=== PATIENT | female | born 1980 | race Caucasian/White ===

== ENCOUNTER 2016-08-26 20:42 | Emergency (ER) | payer OTHER ==
[~2016-08-26 20:42] MED LIST: ALPRAZOLAM; ALPRAZOLAM PO; AMOXIL875 MG; ATARAX PO; CLEOCIN PO; CLONAZEPAM0.5 MG PO; DOXYCYCLINE HY100 M3 PO; EC-NAPROSYN500 MG PO; FIORICET1 TAB DOB; FIORICET1 TAB PO; FLAGYL; FLEXERIL PO; FLEXERIL10 MG PO; HIBICLENS118 ML TP; KEFLEX500 M1 PO; METRONIDAZOLE; MOTRIN600 M1 PO; NEURONTIN; NEURONTIN PO; NEURONTIN300 MG PO; NEURONTIN600 MG PO; NORCO1 TAB 10/3 PO; PHENERGAN PR; PHENERGAN25 M1; TAGAMET PO; THERAPEUTIC M1 TA4 PO; TRAZODONE HCL100 MG PO; VISTARIL PO; VITAMIN B-1100 M1 PO; VOLTAREN75 MG PO; VYVANSE40 MG PO; ZOFRAN ODT4 MG PO
[2016-08-26 20:44] LABS: URINE SOURCE CLEAN CATCH
[2016-08-26 20:50] LABS: URINE APPEARANCE CLEAR; URINE BILIRUBIN NEG (NEG); URINE BLOOD TRACE-INTACT (NEG); URINE COLOR YELLOW; URINE GLUCOSE NEG (NORM); URINE KETONE NEG (NEG); URINE LEUKOCYTE ESTERASE NEG (NEG); URINE NITRATE NEG (NEG); URINE PH 5.5 (5-8); URINE PROTEIN NEG (NEG); URINE SPECIFIC GRAVITY <=1.005 (1.003-1.035); URINE UROBILINOGEN 0.2 MG/DL (NORM)
[2016-08-26 20:53] LABS: MICRO INDICATED? NO
[2016-08-26 20:59] LABS: AMPHETAMINE NEG (NEG); BARBITURATES NEG (NEG); BENZODIAZEPINES NEG (NEG); COCAINE NEG (NEG); MARIJUANA NEG (NEG); OPIATES NEG (NEG); TRICYCLIC ANTIDEPRESSANTS POS (NEG); U METHADONE NEG (NEG)
[2016-08-26 21:19] LABS: BASOPHIL% 0.3 % (0-2.5); EOSINOPHIL# 0.1 X10e3 (0-0.7); EOSINOPHIL% 2.4 % (0.0-7.0); HEMOGLOBIN 15.4 gm/dL (12.0-16.0); LYMPHOCYTE# 1.7 X10e3 (1.0-3.5); LYMPHOCYTE% 31.4 % (17.0-45.0); MEAN CORPUSCULAR HEMOGLOBIN 32.5 PG (28-34); MEAN CORPUSCULAR HGB CONC 34.2 g/dL (30-36); MEAN PLATELET VOLUME 8.4 FL (6.5-11.5); MONOCYTE# 0.4 X10e3 (0-1.0); MONOCYTE% 7.9 % (3.0-12.0); NEUTROPHIL# 3.1 X10e3 (1.5-7.1); PLATELET COUNT 194 X10e3 (140-420); RED BLOOD COUNT 4.74 X10e (3.90-5.30); RED CELL DISTRIBUTION WIDTH 12.5 % (11.0-15.5); WHITE BLOOD COUNT 5.3 X10e3 (4.0-10.5)
[2016-08-26 21:21] LABS: DIFF IND NO
[2016-08-26 21:35] LABS: ALBUMIN SERUM 4.7 g/dL (3.5-5.0); ALKALINE PHOSPHATASE 60 U/L (32-92); ALT (SGPT) 15 U/L (10-40); AST (SGOT) 24 U/L (10-42); BILIRUBIN,TOTAL 0.4 mg/dL (0.2-2.0); BLOOD UREA NITROGEN 9 mg/dL (9-23); BUN/CREATININE RATIO 12.85; CALCIUM SERUM 9.1 mg/dL (8.4-10.2); CARBON DIOXIDE 24 mmol/L (22-31); CHLORIDE 105 mmol/L (100-111); CREATININE SERUM 0.7 mg/dL (0.6-1.4); GLOM FILT RATE Estimated ABOVE60 mL/min (>60); GLUCOSE FASTING 94 mg/dL (70-110); POTASSIUM 3.3 mmol/L (3.5-5.1); PROTEIN TOTAL SERUM 7.9 g/dL (6.0-8.3); SODIUM 139 mmol/L (135-145)
[2016-08-26 21:36] LABS: ALCOHOL BLOOD 275 mg/dL (0)
== END 2016-08-26 22:13 | disposition home or self-care (01) ==
LOC: SED 20:42
PROVIDERS: Emergency Medicine
DX: F10.129 Alcohol abuse with intoxication, unspecified (principal); F32.9 Major depressive disorder, single episode, unspecified
CPT/HCPCS: 36415; 80053; 80307; 81003; 85025; 96374; 99284; G0480; J2405

== ENCOUNTER 2016-11-07 19:52 | Emergency (ER) | payer OTHER ==
--- NOTE | ~2016-11-07 | CT4 ---
[facility] A Service [facility] RADIOLOGY TEXT RESULTS PATIENT: LOUIS ELLER LOCATION: SED : 82 UNIT #: [id number] AGE: [address]: Rogelio Akins MD SEX: F ORDER DR: [id number] [place] [id number] E MR#: [id number] Acc #: [id number] NAME: LOUIS ELLER : 1980 SEX: F STUDY DATE/TIME: 11/07/2016 22:29 UNIT: SED ROOM: STUDY DESCRIPTION: CT Abd and Pelv Wo Cont Attending Physician: Rogelio Akins M.D. Ordering Physician: Rogelio Akins M.D. Primary Care Physician: Casey Durand Aprn MEDICAL IMAGING REPORT This report is preliminary unless electronic signature is present. EXAM CT abdomen and pelvis without contrast. INDICATIONS Lower back and right-sided abdominal pain today. PROCEDURE Unenhanced CT of the abdomen and pelvis. This CT exam was performed with one or more of the following radiation dose reduction techniques: Automatic exposure control, adjustment of mA and/or kV according to patient size, and iterative reconstruction. COMPARISON 10/27/15. FINDINGS Abdomen without contrast: Included lung bases clear. Liver, spleen, kidneys, adrenal glands, pancreas and gallbladder unremarkable. There is moderately large colonic stool burden. Appendix is normal. Pelvis without contrast: No radiodense bladder calculus. No pelvic mass. No aggressive appearing bone lesion. IMPRESSION 1. No acute findings in the abdomen or pelvis. 2. Moderately large colonic stool burden. Appendix is normal Dictated by... Sekou Henley M.D. [facility] A Service of [facility] RADIOLOGY TEXT RESULTS PATIENT: LOUIS ELLER LOCATION: SED : 82 UNIT #: [id number] AGE: [address]: Rogelio Akins MD SEX: F ORDER DR: THIS IS AN ELECTRONICALLY VERIFIED REPORT Sekou Henley M.D. at 11/11/2016 7:24 AM RACHELLE/klaudia TD: 11/08/2016 08:23 JOB #: [id number] MEDICAL IMAGING REPORT Page 1 of 1
[2016-11-07 20:33] LABS: URINE SOURCE CLEAN CATCH
[2016-11-07 20:36] LABS: URINE APPEARANCE CLEAR; URINE BILIRUBIN NEG (NEG); URINE BLOOD NEG (NEG); URINE COLOR YELLOW; URINE GLUCOSE NEG (NORM); URINE KETONE NEG (NEG); URINE LEUKOCYTE ESTERASE NEG (NEG); URINE NITRATE NEG (NEG); URINE PROTEIN NEG (NEG); URINE UROBILINOGEN 0.2 MG/DL (NORM)
[2016-11-07 20:37] LABS: MICRO INDICATED? NO
[2016-11-07 21:50] LABS: BASOPHIL% 0.5 % (0-2.5); EOSINOPHIL# 0.3 X10e3 (0-0.7); EOSINOPHIL% 5.8 % (0.0-7.0); HEMATOCRIT 44.2 % (35.0-45.0); HEMOGLOBIN 15.2 gm/dL (12.0-16.0); LYMPHOCYTE# 1.7 X10e3 (1.0-3.5); LYMPHOCYTE% 30.6 % (17.0-45.0); MEAN CELL VOLUME 97.7 FL (83-96); MEAN CORPUSCULAR HEMOGLOBIN 33.5 PG (28-34); MEAN CORPUSCULAR HGB CONC 34.3 g/dL (30-36); MEAN PLATELET VOLUME 8.9 FL (6.5-11.5); MONOCYTE# 0.5 X10e3 (0-1.0); MONOCYTE% 8.7 % (3.0-12.0); NEUTROPHIL% 54.4 % (40-75); PLATELET COUNT 209 X10e3 (140-420); RED BLOOD COUNT 4.52 X10e (3.90-5.30); RED CELL DISTRIBUTION WIDTH 12.7 % (11.0-15.5); WHITE BLOOD COUNT 5.6 X10e3 (4.0-10.5)
[2016-11-07 21:51] LABS: DIFF IND NO
[2016-11-07 22:10] LABS: ALBUMIN SERUM 4.8 g/dL (3.5-5.0); ALKALINE PHOSPHATASE 80 U/L (32-92); ALT (SGPT) 14 U/L (10-40); AST (SGOT) 21 U/L (10-42); BILIRUBIN, DIRECT <0.1 mg/dL (0.0-0.2); BILIRUBIN,INDIRECT 0.2 mg/dL (0.0-0.9); BILIRUBIN,TOTAL 0.3 mg/dL (0.2-2.0); BLOOD UREA NITROGEN 14 mg/dL (9-23); CALCIUM SERUM 9.4 mg/dL (8.4-10.2); CARBON DIOXIDE 23 mmol/L (22-31); CHLORIDE 104 mmol/L (100-111); CREATININE SERUM 0.8 mg/dL (0.6-1.4); GLOM FILT RATE Estimated 96.3 mL/min (>60); GLUCOSE FASTING 63 mg/dL (70-110); POTASSIUM 3.7 mmol/L (3.5-5.1); PROTEIN TOTAL SERUM 8.3 g/dL (6.0-8.3); SODIUM 136 mmol/L (135-145)
== END 2016-11-07 23:41 | disposition home or self-care (01) ==
LOC: SED 19:52
PROVIDERS: Emergency Medicine
DX: R10.9 Unspecified abdominal pain (principal); F90.9 Attention-deficit hyperactivity disorder, unspecified type; Z79.899 Other long term (current) drug therapy; Z88.8 Allergy status to other drugs, medicaments and biological substances
CPT/HCPCS: 36415; 74176; 80048; 80076; 81003; 84703; 85025; 99284

== ENCOUNTER 2016-12-27 18:26 | Emergency (ER) | payer OTHER ==
[2016-12-27] MEDS ORDERED: STRATTERA80 MG PO (18:31)
[2016-12-27 19:20] LABS: URINE SOURCE CLEAN CATCH
[2016-12-27 19:22] LABS: URINE APPEARANCE CLEAR; URINE BILIRUBIN NEG (NEG); URINE BLOOD NEG (NEG); URINE COLOR YELLOW; URINE GLUCOSE NEG (NORM); URINE KETONE NEG (NEG); URINE LEUKOCYTE ESTERASE NEG (NEG); URINE NITRATE NEG (NEG); URINE PROTEIN NEG (NEG); URINE UROBILINOGEN 0.2 MG/DL (NORM)
[2016-12-27 19:24] LABS: MICRO INDICATED? NO
[2017-01-01 09:49] LABS: CHLAMYDIA TRACH Not Detected (Not Detected); N GONOR Not Detected (Not Detected)
== END 2016-12-27 21:08 | disposition home or self-care (01) ==
LOC: SED 18:26
PROVIDERS: Nurse Practitioner
DX: R10.32 Left lower quadrant pain (principal); R10.2 Pelvic and perineal pain; N93.9 Abnormal uterine and vaginal bleeding, unspecified; N89.8 Other specified noninflammatory disorders of vagina; M54.5 Low back pain; N64.4 Mastodynia; R11.0 Nausea; F41.9 Anxiety disorder, unspecified; F32.9 Major depressive disorder, single episode, unspecified; K58.9 Irritable bowel syndrome, unspecified; Z87.891 Personal history of nicotine dependence; Z98.51 Tubal ligation status; Z98.890 Other specified postprocedural states; Z79.899 Other long term (current) drug therapy; Z88.1 Allergy status to other antibiotic agents
CPT/HCPCS: 81003; 84703; 87210; 87491; 87591; 87808; 87905; 99284

== ENCOUNTER 2017-01-09 22:00 | Inpatient (IN) | payer OTHER ==
[~2017-01-09] VITALS: Ht 157.5 cm; Wt 59.0 kg
--- NOTE | ~2017-01-09 | DS ---
Unit #: [id number] #: [id number] Patient: NATI ELLER [id number] [place] [address] [id number] MR#: [id number] NAME: NATI ELLER ROOM: P202 Age: 36 Sex: F Admission Date: 01/10/2017 : 1980 Discharge Date: 01/11/2017 Attending Physician: Jake Horton M.D. Primary Care Physician: Casey Durand Aprn DISCHARGE SUMMARY REASON FOR ADMISSION Nati is a 36-year-old woman who came in reporting a relapse on alcohol and felt that she would not be able to tolerate alcohol detox outside the hospital. She had no suicidal ideation, intent, or plan and was admitted for stabilization. DIAGNOSTIC STUDIES LABORATORY RESULTS: Beta-hCG was negative. Other studies were within normal limits. HOSPITAL COURSE The patient was admitted and placed on the alcohol detox protocol. She also restarted on Neurontin as an outpatient medication from her primary care physician. She had minimal detox symptomatology. On the following day, she said she felt "fine" and asked to be discharged from the hospital. DISCHARGE DIAGNOSES AXIS I: Alcohol dependence withdrawal, uncomplicated. AXIS II: No diagnosis. AXIS III: Chronic pain. AXIS IV: AXIS V: DISCHARGE INSTRUCTIONS Follow up with [facility] and primary care physician. DISCHARGE MEDICATIONS Trazodone 100 mg at bedtime as needed for insomnia. Primary care medicines were Neurontin 800 mg t.i.d. for pain and Motrin 600 mg every 6 hours as needed for breakthrough pain. CONDITION AT DISCHARGE Improved. PROGNOSIS Fair to good. DIET AND ACTIVITY Per primary care doctor. Dictated by... Unit #: [id number] #: [id number] Patient: NATI ELLER Jake Horton M.D. [facility]/modl TD: 01/11/2017 16:38 JOB #: [id number] DISCHARGE SUMMARY Page 1 of 1 X Jake Horton MD X DISCHARGE SUMMARY
--- NOTE | ~2017-01-09 | HP ---
Unit #: [id number] #: [id number] Patient: LOUIS ELLER [id number] [place] [address] [id number] MR#: [id number] NAME: LOUIS ELLER ROOM: P202 Age: 36 Sex: F Admission Date: 01/10/2017 : 1980 Attending Physician: Jake Horton M.D. Admitting Physician: Jake Horton M.D. Primary Care Physician: Casey Durand Aprn HISTORY AND PHYSICAL HISTORY OF PRESENT ILLNESS Louis is a 36 year old admitted to [address] [place] [address] because of her continued abuse of alcohol. PAST MEDICAL HISTORY Long history of alcohol abuse. PAST SURGICAL HISTORY 1. T and A. 2. Tubal ligation. ALLERGIES Penicillin (vomiting), Benadryl, Topamax. SOCIAL HISTORY She does not smoke. Drinks at least a pint of vodka on a daily basis. Admits to using marijuana daily and has a history of other illicit substance abuse to include cocaine, LSD and amphetamines. FAMILY HISTORY Medically noncontributory. REVIEW OF SYSTEMS CONSTITUTIONAL: No fever or chills. HEENT: Denies any sore throat, ear pain or runny nose. CARDIOVASCULAR: Denies chest pain, irregular heart rhythm or palpitations. CHEST: Denies shortness of breath or cough. No hemoptysis. GASTROINTESTINAL: Denies nausea, vomiting, diarrhea or chronic constipation. ENDOCRINE: Denies history of increased thirst or urination. No recent significant weight loss or gain. GENITOURINARY: Denies dysuria, frequency, or hematuria. SKIN: Denies any rashes. HEMATOLOGIC: Denies history of increased bleeding or bruising. MUSCULOSKELETAL: Denies any hot, swollen joints. No generalized muscle pain. NEUROLOGIC: Denies problems with vision or speech. No frequent, severe headaches. No numbness, tingling or weakness in any extremities. Denies loss of bladder or bowel control. CURRENT MEDICATIONS Detox protocol. Unit #: [id number] #: [id number] Patient: LOUIS ELLER PHYSICAL EXAMINATION GENERAL: Alert, well-nourished, in no apparent distress. VITAL SIGNS: Blood pressure 110/52, heart rate 64, respirations 16, temperature 98.6. WEIGHT: 130. HEIGHT: 5 feet 2 inches. SKIN: Warm and dry without rash or lesion. HEENT: Normocephalic. TMs not viewed. Oral and nasal passages clear. Conjunctivae clear. PERRLA. EOMs intact. NECK: Supple without lymphadenopathy or thyromegaly. HEART: Regular rate and rhythm without murmur. LUNGS: Clear. ABDOMEN: Soft, nontender. : Not done. EXTREMITIES: No evidence of cyanosis, clubbing or edema. Moves all without focal deficit. NEUROLOGICAL: Grossly within normal limits. Cranial Nerves: II: Visual tolbert are intact. III, IV AND : Extraocular movements are intact. Pupils are equal, round and reactive to light. V: Facial sensation is grossly normal. VII: Facial movements and expression are normal. VIII: Auditory acuity grossly intact. IX, X: Uvula is midline. Phonation is normal. XI: Patient shrugs shoulders and turns head normally. XII: Tongue protrudes in the midline. Sensory and Motor Function: Sensory and motor sensation is grossly normal. Motor: moves all extremities well. Coordination: Gait is normal. Deep Tendon Reflexes: Intact. IMPRESSION Psychiatric admission. RECOMMENDATIONS PSYCHIATRIC: Per psychiatrist. MEDICAL: See no contraindication to participate in facility's activities. MEDICAL PROGNOSIS Good. MEDICAL CONDITION Stable. Dictated by... Jeny Hu PElenaAElena-Donald. for David Barrios/doris TD: 01/10/2017 21:05 JOB #: [id number] Unit #: [id number] #: [id number] Patient: LOUIS ELLER HISTORY AND PHYSICAL Page 1 of 1 X Jeny Hu HISTORY AND PHYSICAL
--- NOTE | ~2017-01-09 | PA ---
Unit #: [id number] #: [id number] Patient: LOUIS ELLER [id number] [place] [address] [id number] MR#: [id number] NAME: LOUIS ELLER ROOM: P202 Age: 36 Sex: F Admission Date: 01/10/2017 : 1980 Date of Assessment: 01/10/2017 Attending Physician: Jake Horton M.D. Admitting Physician: Jake Horton M.D. Primary Care Physician: Casey Durand Aprn PSYCHIATRIC ASSESSMENT DATE OF SERVICE 01/10/2017 INFORMANTS The patient, reliable; OLOP, reliable. CHIEF COMPLAINT Alcohol relapse. HISTORY OF PRESENT ILLNESS Louis is a 35-year-old woman, who was at this facility about a year ago due to ongoing alcoholism and mood instability. She attended the outpatient program for a brief period of time as well. She is currently actively drinking and states that she cannot tolerate detox outside of the hospital. She felt nauseous, anxious, and was tearful throughout the assessment. She was admitted for alcohol detox and further stabilization. PAST PSYCHIATRIC HISTORY Last admission was in 10/2015. She also saw Dr. Romero in the outpatient setting. FAMILY PSYCHIATRIC HISTORY There is a family history of substance abuse, but no mental illness. SOCIAL HISTORY The patient reported no history of childhood abuse or neglect. She is a heterosexual woman, who has an active boyfriend, who is father of her children and is supportive, but wants her to quit drinking. 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 PAST MEDICAL HISTORY The patient reports that she takes gabapentin for pain, Fioricet for headaches, trazodone for sleep, and Strattera for "ADD." We will need to confirm these doses and schedules with her pharmacy. MEDICATIONS Please see MAR. ALLERGIES Amoxicillin, Benadryl, and Topamax. SUBSTANCE USE HISTORY As noted in previous assessments. Unit #: [id number] #: [id number] Patient: LOUIS ELLER MENTAL STATUS EXAMINATION Louis presented as a disheveled woman, who appeared older than her stated age. She was cooperative with the examination. Her speech was spontaneous and easily understood. Her musculoskeletal examination was calm. Her mood was anxious with a congruent affect. She was alert and fully oriented. Her memory and concentration were intact. Her thought processes were logical with no active psychosis. She denied suicidal ideation, intent, or plan. Insight and judgment, fair. Fund of knowledge and abstraction, fair. ASSETS AND LIABILITIES The patient presents voluntarily for treatment, has supportive boyfriend, and knows local resources. Liabilities include difficulty maintaining sobriety, erratic employment. ADMITTING DIAGNOSES AXIS I: Alcohol dependence with withdrawal, uncomplicated; history of depression. AXIS II: No diagnosis. AXIS III: History of pain. AXIS IV: AXIS V: PSYCHIATRIC PLAN The patient was admitted and placed on the alcohol detox protocol. We will contact her pharmacy when available and restart her home medications that are appropriate. She will enroll in dual diagnosis groups and activities and physical examination and laboratory studies will be ordered and reviewed. TREATMENT GOALS Establishment of sobriety, improvement in insight, and improvement in coping skills. DISCHARGE PLANNING Follow up with [facility] and primary care physician. ESTIMATED LENGTH OF STAY 5 days. Dictated by... Jake Horton M.D. YORDAN/aftab TD: 01/10/2017 10:35 JOB #: [id number] Unit #: [id number] #: [id number] Patient: LOUIS ELLER PSYCHIATRIC ASSESSMENT Page 1 of 1 X Jake Horton MD X PSYCHIATRIC ASSESSMENT
[~2017-01-09 22:00] MED LIST changes: +STRATTERA80 MG PO
[2017-01-10 09:39] LABS: BASOPHIL% 0.4 % (0-2.5); EOSINOPHIL# 0.2 X10e3 (0-0.7); EOSINOPHIL% 3.5 % (0.0-7.0); HEMATOCRIT 40.6 % (35.0-45.0); HEMOGLOBIN 14.3 gm/dL (12.0-16.0); LYMPHOCYTE# 1.9 X10e3 (1.0-3.5); LYMPHOCYTE% 32.4 % (17.0-45.0); MEAN CORPUSCULAR HEMOGLOBIN 33.5 PG (28-34); MEAN CORPUSCULAR HGB CONC 35.2 g/dL (30-36); MEAN PLATELET VOLUME 8.3 FL (6.5-11.5); MONOCYTE# 0.5 X10e3 (0-1.0); MONOCYTE% 7.9 % (3.0-12.0); NEUTROPHIL# 3.3 X10e3 (1.5-7.1); NEUTROPHIL% 55.8 % (40-75); PLATELET COUNT 221 X10e3 (140-420); RED BLOOD COUNT 4.28 X10e (3.90-5.30); RED CELL DISTRIBUTION WIDTH 12.5 % (11.0-15.5); WHITE BLOOD COUNT 5.9 X10e3 (4.0-10.5)
[2017-01-10 09:52] LABS: DIFF IND NO
[2017-01-10 10:59] LABS: ALBUMIN SERUM 4.3 g/dL (3.5-5.0); BILIRUBIN,TOTAL 0.4 mg/dL (0.2-2.0); BUN/CREATININE RATIO 11.25; CREATININE SERUM 0.8 mg/dL (0.6-1.4); GLOM FILT RATE Estimated 96.3 mL/min (>60); POTASSIUM 4.3 mmol/L (3.5-5.1)
[2017-01-11 11:58] LABS: URINE APPEARANCE TURBID; URINE BLOOD NEG (NEG); URINE COLOR DK YELLOW; URINE GLUCOSE NEG (NEG); URINE KETONE 2+ (NEG); URINE LEUKOCYTE ESTERASE NEG (NEG); URINE NITRATE NEG (NEG); URINE PROTEIN 1+ (NEG); URINE SPECIFIC GRAVITY 1.035 (1.003-1.035); URINE UROBILINOGEN 0.2 MG/DL (NEG)
[2017-01-11 12:00] LABS: URBCS1 AUWI 0-2 /[HPF] (0-2); URINE BACTERIA AUWI 1+ (NEGATIVE); URINE SQUAMOUS EPITHELIAL CELL FEW /[HPF]
[2017-01-11 12:08] LABS: URINE BILIRUBIN NEG (NEG)
[2017-01-11 12:27] LABS: AMPHETAMINE NEG (NEG); BARBITURATES NEG (NEG); BENZODIAZEPINES POS (NEG); COCAINE NEG (NEG); MARIJUANA NEG (NEG); OPIATES NEG (NEG); TRICYCLIC ANTIDEPRESSANTS NEG (NEG); U METHADONE NEG (NEG)
== END 2017-01-11 14:43 | disposition home or self-care (01) | DRG 897 ==
LOC: P2S 01-10 01:19
PROVIDERS: Specialist
PROC: HZ2ZZZZ Detoxification Services for Substance Abuse Treatment (ICD-10-PCS; principal; 2017-01-10)
DX: F10.239 Alcohol dependence with withdrawal, unspecified (principal); G89.29 Other chronic pain; Z88.0 Allergy status to penicillin; Z98.51 Tubal ligation status
CPT/HCPCS: 80053; 80307; 81003; 84703; 85025

== ENCOUNTER 2017-02-19 10:13 | Emergency (ER) | payer OTHER ==
--- NOTE | ~2017-02-19 | CT2 ---
[facility] A Service of [facility] RADIOLOGY TEXT RESULTS PATIENT: LOUIS ELLER LOCATION: SED : 82 UNIT #: [id number] AGE: [address]: Felicitas Salinas SEX: F ORDER DR: [id number] [address] [address] [id number] E MR#: [id number] Acc #: [id number] NAME: LOUIS ELLER : 1980 SEX: F STUDY DATE/TIME: 02/19/2017 12:50 UNIT: SED ROOM: STUDY DESCRIPTION: CT Abd and Pelv W Cont Attending Physician: Felicitas Salinas Pa-C Ordering Physician: Felicitas Salinas Pa-C Primary Care Physician: Casey Durand Aprn MEDICAL IMAGING REPORT This report is preliminary unless electronic signature is present. EXAM CT abdomen and pelvis with contrast INDICATIONS Right lower quadrant abdominal pain and pelvic cramping for the past month, worse yesterday. PROCEDURE Contrast-enhanced CT of the abdomen and pelvis. This CT exam was performed with one or more of the following radiation dose reduction techniques: automatic control, adjustment of mA and/or kV according to patient size, and iterative reconstruction. Comparison 11/07/2016 FINDINGS ABDOMEN WITH CONTRAST: Included lung bases are clear. Liver spleen kidneys adrenal glands pancreas and gallbladder are unremarkable. The bowel loops are nondilated. Moderately large colonic stool burden. Appendix is normal. PELVIS WITH CONTRAST: There is a rim-enhancing structure in the left adnexa measures that 1.8 cm probably a collapsing corpus luteum. No significant pelvic fluid. No aggressive appearing bone lesion. IMPRESSION 1. A 1.8 cm rim-enhancing structure left adnexa probably a collapsing corpus luteum. A potential cause for pelvic pain. 2. Moderately large colonic stool burden. 3. The appendix is normal. Dictated by... Sekou Henley M.D. [facility] A Service of [facility] RADIOLOGY TEXT RESULTS PATIENT: LOUIS ELLER LOCATION: SED : 82 UNIT #: [id number] AGE: [address]: Felicitas Salinas SEX: F ORDER DR: THIS IS AN ELECTRONICALLY VERIFIED REPORT Sekou Henley M.D. at 02/20/2017 7:02 AM RACHELLE/jennifer TD: 02/19/2017 23:03 JOB #: [id number] MEDICAL IMAGING REPORT Page 1 of 1
[2017-02-19 11:42] LABS: URINE SOURCE CLEAN CATCH
[2017-02-19 11:45] LABS: MICRO INDICATED? NO; URINE APPEARANCE CLEAR; URINE BILIRUBIN NEG (NEG); URINE BLOOD NEG (NEG); URINE COLOR YELLOW; URINE GLUCOSE NEG (NORM); URINE KETONE NEG (NEG); URINE LEUKOCYTE ESTERASE NEG (NEG); URINE NITRATE NEG (NEG); URINE PROTEIN NEG (NEG); URINE UROBILINOGEN 0.2 MG/DL (NORM)
[2017-02-19 12:13] LABS: BASOPHIL% 0.4 % (0-2.5); EOSINOPHIL# 0.1 X10e3 (0-0.7); EOSINOPHIL% 3.1 % (0.0-7.0); HEMATOCRIT 39.8 % (35.0-45.0); HEMOGLOBIN 13.8 gm/dL (12.0-16.0); LYMPHOCYTE# 1.2 X10e3 (1.0-3.5); LYMPHOCYTE% 26.3 % (17.0-45.0); MEAN CELL VOLUME 97.2 FL (83-96); MEAN CORPUSCULAR HEMOGLOBIN 33.6 PG (28-34); MEAN CORPUSCULAR HGB CONC 34.6 g/dL (30-36); MEAN PLATELET VOLUME 8.8 FL (6.5-11.5); MONOCYTE# 0.4 X10e3 (0-1.0); MONOCYTE% 9.2 % (3.0-12.0); NEUTROPHIL# 2.7 X10e3 (1.5-7.1); PLATELET COUNT 160 X10e3 (140-420); RED CELL DISTRIBUTION WIDTH 13.3 % (11.0-15.5); WHITE BLOOD COUNT 4.4 X10e3 (4.0-10.5)
[2017-02-19 12:19] LABS: DIFF IND NO
[2017-02-19 12:32] LABS: ALBUMIN SERUM 4.5 g/dL (3.5-5.0); ALKALINE PHOSPHATASE 52 U/L (32-92); ALT (SGPT) 14 U/L (10-40); AST (SGOT) 19 U/L (10-42); BILIRUBIN,TOTAL 0.4 mg/dL (0.2-2.0); BLOOD UREA NITROGEN 12 mg/dL (9-23); CALCIUM SERUM 8.7 mg/dL (8.4-10.2); CARBON DIOXIDE 24 mmol/L (22-31); CHLORIDE 103 mmol/L (100-111); CREATININE SERUM 0.8 mg/dL (0.6-1.4); GLOM FILT RATE Estimated 96.3 mL/min (>60); GLUCOSE FASTING 95 mg/dL (70-110); POTASSIUM 4.2 mmol/L (3.5-5.1); PROTEIN TOTAL SERUM 7.3 g/dL (6.0-8.3); SODIUM 130 mmol/L (135-145)
[2017-02-19 12:35] LABS: BILIRUBIN, DIRECT <0.1 mg/dL (0.0-0.2); BILIRUBIN,INDIRECT 0.3 mg/dL (0.0-0.9)
[2017-02-21 08:28] LABS: CHLAMYDIA TRACH Not Detected (Not Detected); N GONOR Not Detected (Not Detected)
== END 2017-02-19 14:05 | disposition home or self-care (01) ==
LOC: SED 10:13
PROVIDERS: Physician Assistant
DX: N76.0 Acute vaginitis (principal); Z98.51 Tubal ligation status; Z98.890 Other specified postprocedural states; F17.200 Nicotine dependence, unspecified, uncomplicated
CPT/HCPCS: 36415; 74177; 80048; 80076; 81003; 84703; 85025; 87491; 87591; 87808; 87905; 96360; 96361; 96374; 99284; J2405; Q9967